=== PATIENT | female | born 1970 | race Caucasian/White ===

== ENCOUNTER → 2016-12-19 | Outpatient (CLI) | payer OTHER ==
--- NOTE | 2016-12-20 01:47 | REP ---
Clinical: Posterior knee pain with recent trauma. Technique: AP, lateral, bilateral oblique and sunrise views of the right knee. Findings: Age-related changes are appreciated. No acute fracture or dislocation. No obvious effusion. No subcutaneous emphysema or radiodense foreign body. Impression: Age-related degenerative changes. No acute fracture or dislocation. Signed by Tony Marshall MD 12/20/2016 01:39 A
== END ==
LOC: M CLY 15:03
PROVIDERS: ATTEND Nurse Practitioner
DX: M17.11 Unilateral primary osteoarthritis, right knee (principal); M25.561 Pain in right knee

== ENCOUNTER → 2017-07-10 | Outpatient (REF) | payer OTHER | LOC: M LAB REF 07-09 10:00 | PROVIDERS: ATTEND Physician Assistant | DX: N39.0 Urinary tract infection, site not specified (principal) ==

== ENCOUNTER → 2019-02-26 | Outpatient (CLI) | payer OTHER ==
--- NOTE | 2019-02-26 16:37 | REP ---
Clinical: Right knee pain. Technique: AP, lateral, bilateral oblique and sunrise views of the right knee. Findings: Increased sclerosis to the tibial plateau is appreciated with very subtle medial joint space narrowing. [place] view suggests increase sclerosis along the posterior patellar margin with minimal lateral joint space narrowing. No acute fracture dislocation. No effusion. No fracture. No obvious chondrocalcinosis. Impression: Mild arthritic degenerative changes. Electronically Signed by Tony Marshall MD 02/26/2019 04:28 P
== END ==
LOC: M WUC 16:07
PROVIDERS: ATTEND Physician Assistant
DX: M17.11 Unilateral primary osteoarthritis, right knee (principal)

== ENCOUNTER → 2019-07-25 | Outpatient (CLI) | payer OTHER ==
--- NOTE | 2019-07-25 10:53 | REP ---
HISTORY: Knee pain. COMPARISON: None. The anterior and posterior horns of the lateral meniscus are within normal limits. The anterior and posterior horns of the medial meniscus are within normal limits. The anterior and posterior cruciate ligaments are intact. The quadriceps and patellar tendons are intact. The medial and lateral collateral ligaments are intact. The medial and lateral patellar retinacula are intact. There is blistering involving the patellar articular cartilage. The medial and lateral compartmental articular cartilages are slightly thinned. There is no joint effusion. The marrow signal is within normal limits. Seen herniating between the tendon of the medial head of the gastrocnemius muscle and the semimembranosus tendon, there is a septated structure of T1 and T2 prolongation, which measures approximately 5 x 0.9 x 1.5 cm. IMPRESSION: 1. Chondromalacia as described above. 2. Slightly complex Hall's cyst as described above. 3. Incidental healed benign fibrous cortical defect distal femoral diaphyseal cortex posterolaterally. Electronically Signed by You Heard DO 07/25/2019 12:22 P
== END ==
LOC: M RAD 08:35
PROVIDERS: ATTEND Orthopaedic Surgery Sports Medicine
DX: M25.561 Pain in right knee (principal)

== ENCOUNTER → 2019-11-05 | Outpatient (REF) | payer OTHER ==
[2019-11-05 16:55] LABS: APPEARANCE, URINE CLEAR (CLEAR); BACTERIA, URINE AUTO 1+ (NEGATIVE); BILIRUBIN, URINE AUTO NEGATIVE (NEGATIVE); BLOOD, URINE BLOOD NEGATIVE (NEGATIVE); COLOR, URINE YELLOW (YELLOW); GLUCOSE, URINE (UA) AUTO NEGATIVE (NEGATIVE); KETONE, URINE AUTO TRACE mg/dL (NEGATIVE); LEUKOCYTE ESTERASE, URINE AUTO NEGATIVE (NEGATIVE); NITRITE, URINE AUTO NEGATIVE (NEGATIVE); PROTEIN, URINE AUTO NEGATIVE (NEGATIVE); RBC, URINE AUTO 2 /HPF (0-3); SPECIFIC GRAVITY URINE AUTO 1.009 (1.002-1.035); SQUAMOUS EPITHELIAL CELL UR AU 0 /HPF (0-6); UROBILINOGEN, URINE AUTO 0.2 mg/dL (0.0-2.0); WBC, URINE AUTO 0 /HPF (0-3)
[2019-11-05 16:56] LABS: HEMATOCRIT 44.8 % (36.0-47.0); HEMOGLOBIN 15.1 g/dl (12.0-15.5); MEAN CORPUSCULAR HGB CONC 33.7 g/dl (32.0-36.5); MEAN CORPUSCULAR VOLUME 88.9 fl (80.0-96.0); PLATELET COUNT, AUTOMATED 228 10^3/uL (150-450); RED BLOOD COUNT 5.04 10^6/uL (4.00-5.40); WHITE BLOOD COUNT 5.9 10^3/uL (4.0-10.0)
[2019-11-05 17:11] LABS: ALBUMIN 4.4 GM/DL (3.2-5.2); ALT/SGPT 46 U/L (12-78); BILIRUBIN,TOTAL 0.6 MG/DL (0.2-1.0); BLOOD UREA NITROGEN 16 MG/DL (7-18); C REACTIVE PROTEIN QUANTITATIV < 0.30 MG/DL (0.00-0.30); CALCIUM LEVEL 9.2 MG/DL (8.5-10.1); CARBON DIOXIDE LEVEL 28 MEQ/L (21-32); CHLORIDE LEVEL 106 MEQ/L (98-107); CREATININE FOR GFR 0.66 MG/DL (0.55-1.30); GLOMERULAR FILTRATION RATE > 60.0 (>58); GLUCOSE, FASTING 90 MG/DL (70-100); SODIUM LEVEL 138 MEQ/L (136-145); TOTAL PROTEIN 7.5 GM/DL (6.4-8.2)
[2019-11-05 17:24] LABS: ERYTHROCYTE SEDIMENTATION RATE 2 mm/hr (0-20)
[2019-11-10 10:07] LABS: ANA (HEP2) Negative (.); ANTI DS-DNA AB Negative (Negative)
== END ==
LOC: M SFHCCLAY 10:58
PROVIDERS: ATTEND Family Medicine
DX: M32.9 Systemic lupus erythematosus, unspecified (principal); R53.83 Other fatigue

== ENCOUNTER → 2020-10-11 | Outpatient (CLI) | payer OTHER ==
--- NOTE | 2020-10-12 04:05 | REP ---
INDICATION: HX OF COVID C/O CHEST HEAVINESS COMPARISON: None. TECHNIQUE: PA and lateral. FINDINGS: The mediastinum and cardiac silhouette are normal. The lung rico are clear and without acute consolidation, effusion, or pneumothorax. The skeletal structures are intact and normal. IMPRESSION: No acute cardiopulmonary process. <Electronically signed by Tony Marshall > 10/12/20 [id number]
== END ==
LOC: M CLY 12:24
PROVIDERS: ATTEND Family Medicine
DX: J32.1 Chronic frontal sinusitis (principal); R07.89 Other chest pain

== ENCOUNTER 2020-10-27 09:08 | Emergency (ER) | payer OTHER ==
[~2020-10-27] VITALS: Ht 162.6 cm; Wt 64.1 kg
[2020-10-27] MEDS ORDERED: ASPI81TA26 (09:18)
[2020-10-27] MEDS ORDERED: NS 500 ML IV ONE (09:50)
--- OUTSIDE RECORDS SUMMARY | 2020-10-27 09:58 | CCD ---
Author Author [facility] [facility] Organization 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 Active confirmed 67697766640191738 Problem Frontal sinusitis, unspecified chronicity J32.1 Active confirmed 81106417 Problem Allergic rhinitis J30.9 Active confirmed 61 025276 Problem Impacted cerumen of left ear H61.22 Active confirme d 67637756 Problem Anxiety F41.9 Active confirmed 68904787 Problem Systemic lupus M32.9 Active confirmed 34292 009 ALLERGIES Allergen (clinical drug ingredient) Drug/Non Drug Allergy do cumented on EMR Reaction Allergy Type Onset Date Status sulfa Rash Non Drug Allergy Active ENCOUNTERS from 1971 to 2020-10-11 Encounter Location Date Provider Diagnosis [facility] [address] [place] [address] Oct, Mathew Paulson SLE (systemic lupus erythematosus related syndrome) M32.9 and Frontal sinusitis, unspecified chronicity J32.1 IMMUNIZATIONS Vaccine Route Administration Date Status Influenza (6mo & up) Fluzone Unknown December 19, 2016 Ref used SOCIAL HISTORY Tobacco Use: Social History Observation Description Date Details (start date - stop date) Never Smoker Sex Assigned At : Social History Observation Description Sex Assigned At Unknown Audit Question Answer Notes Total Score: 1 Interpretation: Alcohol Education Catholic: Question Answer Notes Catholic pentecostalism has no impa ct on healthcare Sexual Hx: Question Answer Notes Had sex in the last 12 months (vaginal, oral, or anal)? Yes Have you ever had an STD? No with Men only Use protection? No Drug and Alcohol Question Answer Notes Total Score: 0 Interpretation: No problems reported Alcohol Screening: Question Answer Notes Did you have a drink containing alcohol in the past year? Ye s Points 1 Interpretation Negative How often did you have six or more drinks on one occas ion in the past year? Never (0 points) How many drinks did you have on a typica l day when you were drinking in the past year? 1 or 2 (0 points) How often did you have a drink containing alcohol in t he past year? Monthly or less (1 point) BMI Care Goal Follow-Up Question Answer Notes Above Normal BMI Follow-Up Dietary management educatio n, guidance, and counseling Tobacco Use: Question Answer Notes Are you a: never smoker never smoker/updated 10/11/2020 Additional Findings: Tobacco User none Additional Findings: Tobacco Non-User no REASON FOR REFERRAL No Information VITAL SIGNS No information MEDICATIONS Medication SIG (Take, Route, Frequency, Duration) Notes Start Da te End Date Status Nakita 180 MG 1 tablet as needed Orally Once a day Active PredniSONE 20 MG 2 tablet Orally Daily for 5 day(s) 2020 Active PredniSONE 10 MG 2 tablet daily then taper as directed Orally Once a day for 30 day(s) Oct, Active Gabapentin 300 MG 1 capsule Orally qhs Active Mirena 20 MCG/24HR Intrauterine Act britney Aspirin 81 81 MG 1 tablet Orally Once a day for 30 day(s) Oct, Active PROCEDURES from 1971 to 2020-10-11 Procedure Date Ordered Result Body Site ELECTROCARDIOGRAM, COMPLETE EKG 2020-10-11 N/A RESULTS No Results REASON FOR VISIT call back MEDICAL (GENERAL) HISTORY Type Description Date Medical History Lupus Medical History Frontal sinusitis, unspecified chronicit y Medical History Sinusitis, unspecified chronicity, unspe cified location Surgical History right knee surgery 1992 Surgical History endometriosis Surgical History D&C Hospitalization History surgery Goals Section No Information Health Concerns No Information MEDICAL EQUIPMENT No Information MENTAL STATUS No Information FUNCTIONAL STATUS No Information ASSESSMENTS Encounter Date Diagnosis Assessment Notes Treatment Notes Treatm ent Clinical Notes Oct, SLE (systemic lupus erythema tosus related syndrome) (ICD-10 - M32.9) Oct, Frontal sinusitis, unspecified chronicity (ICD-1 0 - J32.1) PLAN OF TREATMENT Future Test Test Name Order Date TAWNY CHEST 2 VIEW [id number] Next Appt Details Provider Name:Mathew Paulson, 2020-11-02 03 :30:00 PM, [address] , [place], [address], Insurance Providers Payer Name Payer Address Payer Phone Insured Name Patient Relati onship to Insured Coverage Start Date Coverage End Date [facility] [address] [facility] [id number] RAIES LAMB self
--- OUTSIDE RECORDS SUMMARY | 2020-10-27 09:58 | CCD ---
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 Active 96927541441210935 Problem Fibromyalgia M79.7 Active 57310923 Problem Allergic rhinitis J30.9 Active 68548345 Problem Impacted cerumen of left ear H61.22 Active 180 27423 Problem Anxiety F41.9 Active 62191536 ALLERGIES Allergen (clinical drug ingredient) Drug/Non Drug Allergy do cumented on EMR Reaction Allergy Type Onset Date Status sulfa Rash Non Drug Allergy Active ENCOUNTERS from 1971 to 2020-09-16 Encounter Location Date Provider Diagnosis [facility] [address] [place] [address] Sep, Mathew Paulosn IMMUNIZATIONS Vaccine Route Administration Date Status Influenza (6mo & up) Fluzone Unknown December 19, 2016 Ref used SOCIAL HISTORY Tobacco Use: Social History Observation Description Date Details (start date - stop date) Never Smoker Sex Assigned At : Social History Observation Description Sex Assigned At Unknown Audit Question Answer Notes Total Score: 1 Interpretation: Alcohol Education Baptist: Question Answer Notes Baptist religious has no impa ct on healthcare Sexual [...] Are you a: never smoker never smoker/updated 11/05/2019 Additional Findings: Tobacco User none Additional Findings: Tobacco Non-User no REASON FOR REFERRAL No Information VITAL SIGNS No information MEDICATIONS Medication SIG (Take, Route, Frequency, Duration) Notes Start Da te End Date Status Mirena 20 MCG/24HR Intrauterine Act britney Ankita 180 MG 1 tablet as needed Orally Once a day Active Ibuprofen 800 mg 1 tablet Orally Three times a day,prn pain Sep, Active Gabapentin 300 MG 1 capsule Orally qhs for 30 Days Active PROCEDURES No Information RESULTS No Results REASON FOR VISIT FYI MEDICAL (GENERAL) HISTORY Type Description Date Medical History Lupus Medical History Frontal sinusitis, unspecified chronicit y Medical History Sinusitis, unspecified chronicity, unspe cified location Surgical History right knee surgery 1992 Surgical History endometriosis Surgical History D&C Hospitalization History surgery Goals Section No Information Health Concerns No Information MEDICAL EQUIPMENT No Information MENTAL STATUS No Information FUNCTIONAL STATUS No Information ASSESSMENTS No Information PLAN OF TREATMENT Medication Medication Name Sig Start Date Stop Date Mirena 20 MCG/24HR Intrauterine Ibuprofen 800 mg 1 tablet Orally Three times a day,prn pain 2014 Gabapentin 300 MG 1 capsule Orally qhs for 30 Days Ankita 180 MG 1 tablet as needed Orally Once a day Next Appt Details Provider Name:Mathew Paulson, 2020-09-28 03 :30:00 PM, [address] [place], [address], Insurance Providers Payer Name Payer Address Payer Phone Insured Name Patient Relati onship to Insured Coverage Start Date Coverage End Date [facility] [address] [facility] [phone] ARIES LAMB self
--- OUTSIDE RECORDS SUMMARY | 2020-10-27 09:58 | CCD ---
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 Active 34060238830375509 Problem Fibromyalgia M79.7 Active 73813831 Problem Allergic rhinitis J30.9 Active 11028888 Problem Impacted cerumen of left ear H61.22 Active 180 69597 Problem Anxiety F41.9 Active 31387832 ALLERGIES Allergen (clinical drug ingredient) Drug/Non Drug Allergy do cumented on EMR Reaction Allergy Type Onset Date Status sulfa Rash Non Drug Allergy Active ENCOUNTERS from 1971 to 2020-08-12 Encounter Location Date Provider Diagnosis [facility] [address] [place] [address] Aug, Mathew Paulson Fibromyalgia M79.7 IMMUNIZATIONS Vaccine Route Administration Date Status Influenza (6mo & up) Fluzone Unknown December 19, 2016 Ref used SOCIAL HISTORY Tobacco Use: Social History Observation Description Date Details (start date - stop date) Never Smoker Sex Assigned At : Social History Observation Description Sex Assigned At Unknown Audit Question Answer Notes Total Score: 1 Interpretation: Alcohol Education Tenriism: Question Answer Notes Tenriism yarsanism has no impa ct on healthcare Sexual [...] Information RESULTS No Results REASON FOR VISIT refill MEDICAL (GENERAL) HISTORY Type Description Date Medical [...] Notes Treatment Notes Treatm ent Clinical Notes Aug, Fibromyalgia (ICD-10 - M79.7) PLAN OF TREATMENT Medication Medication Name Sig Start Date Stop Date Mirena 20 MCG/24HR Intrauterine Ibuprofen 800 mg 1 tablet Orally Three times a day,prn pain 2014 Gabapentin 300 MG 1 capsule Orally qhs for 30 Days Ankita 180 MG 1 tablet as needed Orally Once a day Insurance Providers Payer Name Payer Address Payer Phone Insured Name Patient Relati onship to Insured Coverage Start Date Coverage End Date [facility] [address] [facility] [address] ARIES LAMB self
--- OUTSIDE RECORDS SUMMARY | 2020-10-27 09:58 | CCD | Continuity of Care Document ---
Author Author [facility] Organization Unknown Address [address] [place] [address] [place] [address] Phone [phone] Care Team Providers Care Front Desk Agent Name Role Phone Mathew Paulson MD AUTM [phone] [employer] AUTM [phone] Problems Description No Information Available Social History Type Date Description Comments Sex Unknown ETOH Use Rarely consumes alcohol Tobacco Use Start: Unknown Patient has never smoked Smoking Status Reviewed: 02/26/19 Patient has never smoked Allergies, Adverse Reactions, Alerts Active Allergies Reaction Severity Comments Date Cipro 07/09/2017 Medications Active Medications SIG Qnty Indications Ordering Provide r Date Advil 200mg Capsules 2 @3am Danis Medellin JR., M.D. 09/13/2020 Vitamin-B Complex Tablets Unknown Womens Daily Formula Tablets Unknown Mirena (52 MG) 20mcg/24HR IUD Unknown History Medications Albuterol Sulfate HFA 108(90Base) mcg/Act Aerosol 2 puffs inhaled every 4-6 hours as needed for sob/wheeze 8.500gm J06.9 Danis Medellin JR., M.D. 07/26/2020 - 08/03/2020 Immunizations Description No Information Available Vital Signs Date Vital Result Comment 09/13/2020 10:22am BP Systolic 124 mmHg BP Diastolic 80 mmHg Heart Rate 78 /min Respiratory Rate 16 /min O2 % BldC Oximetry 99 % Body Temperature 98.7 F Weight 134.00 lb Height 64 inches 5'4" BMI (Body Mass Index) 23.0 kg/m2 Pain Level 1 07/26/2020 9:53am BP Systolic 120 mmHg BP Diastolic 84 mmHg Heart Rate 76 /min Respiratory Rate 16 /min O2 % BldC Oximetry 99 % Body Temperature 98.7 F Weight 129.00 lb Height 64 inches 5'4" BMI (Body Mass Index) 22.1 kg/m2 Pain Level 2 Results Description No Information Available Procedures Description No Information Available Medical Devices Description No Information Available Encounters Type Date Location Provider Dx Diagnosis Office Visit 09/13/2020 9:30a [facility] Dada Morley, P .A. R05 Cough U07.1 Covid-19 Office Visit 07/26/2020 9:15a [facility] Dada Morley, P .A. J06.9 Acute upper respiratory infection, unspecified R05 Cough Z20.828 Contact w and exposure to ot h viral communicable diseases Assessments Date Code Description Provider 09/13/2020 R05 Cough Dada gilliam, P.A. 09/13/2020 U07.1 Covid-19 Dada gilliam, P.A. 07/26/2020 J06.9 Acute upper respiratory infectio n, unspecified Dada Morley, P.A. 07/26/2020 R05 Cough Dada gilliam, P.A. 07/26/2020 Z20.828 Contact with and (nunes spected) exposure to other viral communicable diseases Dada Morley, P.A. Plan of Treatment No Information Available Functional Status Description No Information Available Mental Status Description No Information Available Referrals Description No Information Available
--- OUTSIDE RECORDS SUMMARY | 2020-10-27 09:58 | CCD ---
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 Active confirmed 30323010796101251 Problem Frontal sinusitis, unspecified chronicity J32.1 Active confirmed 66766775 Problem Allergic rhinitis J30.9 Active confirmed 61 673895 Problem Impacted cerumen of left ear H61.22 Active confirme d 37925482 Problem Anxiety F41.9 Active confirmed 38562636 Problem Systemic lupus M32.9 Active confirmed 01451 009 ALLERGIES Allergen (clinical drug ingredient) Drug/Non Drug Allergy do cumented on EMR Reaction Allergy Type Onset Date Status sulfa Rash Non Drug Allergy Active ENCOUNTERS from 1971 to 2020-10-13 Encounter Location Date Provider Diagnosis [facility] [address] [place] [address] 11 Oct, 2020 Mathew Paulson Fibromyalgia M79.7 IMMUNIZATIONS Vaccine Route Administration Date Status Influenza (6mo & up) Fluzone Unknown December 19, 2016 Ref used SOCIAL HISTORY Tobacco Use: Social History Observation Description Date Details (start date - stop date) Never Smoker Sex Assigned At : Social History Observation Description Sex Assigned At Unknown Audit Question Answer Notes Total Score: 1 Interpretation: Alcohol Education Voodoo: Question Answer Notes Voodoo yarsanism has no impa ct on healthcare [...] Notes Start Da te End Date Status Ankita 180 MG 1 tablet as needed Orally Once a day Active PredniSONE 20 MG 2 tablet Orally Daily for 5 day(s) 2020 Active PredniSONE 10 MG 2 tablet daily then taper as directed Orally Once a day for 30 day(s) Oct, Active Gabapentin 300 MG 1 capsule Orally qhs for 90 days Active Mirena 20 MCG/24HR Intrauterine Act britney Aspirin 81 81 MG 1 tablet Orally Once a day for 30 day(s) Oct, Active PROCEDURES No Information RESULTS No Results REASON FOR VISIT Refill - Gabapentin MEDICAL (GENERAL) HISTORY Type Description Date Medical [...] Treatment Notes Treatm ent Clinical Notes Oct, Fibromyalgia (ICD-10 - M79.7) PLAN OF TREATMENT Medication Medication Name Sig Start Date Stop Date Gabapentin 300 MG 1 capsule Orally qhs for 90 days Next Appt Details Provider Name:Mathew Paulson, 2020-11-02 03 :30:00 PM, [address] [place], [place], [address], Insurance Providers Payer Name Payer Address Payer Phone Insured Name Patient Relati onship to Insured Coverage Start Date Coverage End Date [facility] [address] [facility] [phone] [phone] ARIES LAMB self
--- OUTSIDE RECORDS SUMMARY | 2020-10-27 09:58 | CCD | Continuity of Care Document ---
Author Author Gamaliel MORLEY Organization Unknown Address [address] [place] [address] [place] [address] Phone [phone] Care Team Providers Care Supervisor Photoengraving Name Role Phone Mathew Paulson MD AUTM [phone] [employer] AUTM [phone] Problems Description No Information Available Social History [...]
--- OUTSIDE RECORDS SUMMARY | 2020-10-27 09:58 | CCD ---
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 Active confirmed 68174974172661351 Problem Frontal sinusitis, unspecified chronicity J32.1 Active confirmed 16141604 Problem Allergic rhinitis J30.9 Active confirmed 61 175924 Problem Impacted cerumen of left ear H61.22 Active confirme d 20242593 Problem Anxiety F41.9 Active confirmed 76976166 Problem Systemic lupus M32.9 Active confirmed 07778 009 ALLERGIES Allergen (clinical drug ingredient) Drug/Non Drug Allergy do cumented on EMR Reaction Allergy Type Onset Date Status sulfa Rash Non Drug Allergy Active ENCOUNTERS from 1971 to 2020-10-12 Encounter Location Date Provider Diagnosis [facility] [address] [place] [address] Oct, Mathew Paulson COVID-19 U07.1 ; SLE (systemic lupus erythematosus related syndrome) M32.9 and Fibromyalgia M79.7 IMMUNIZATIONS Vaccine Route Administration Date Status Influenza (6mo & up) Fluzone Unknown December 19, 2016 Ref used SOCIAL HISTORY Tobacco Use: Social History Observation Description Date Details (start date - stop date) Never Smoker Sex Assigned At : Social History Observation Description Sex Assigned At Unknown Audit Question Answer Notes Total Score: 1 Interpretation: Alcohol Education Restoration: Question Answer Notes Restoration denominational has no impa ct on healthcare Sexual [...] REASON FOR REFERRAL No Information VITAL SIGNS Weight 132 lbs Oct, Height 63" in Oct, BMI 23.38 kg/m2 Oct, Heart Rate 66 /min Oct, Respiratory Rate 17 /min Oct, Temperature 97.3 degrees Fahrenheit Oct, Oximetry 99RA Oct, Blood pressure systolic 128 mm Hg Oct, Blood pressure diastolic 88 mm Hg Oct, MEDICATIONS Medication SIG (Take, Route, Frequency, Duration) [...] Information RESULTS No Results REASON FOR VISIT R/S from no show appt 07/15/20 MEDICAL (GENERAL) HISTORY Type Description Date Medical [...] Treatment Notes Treatm ent Clinical Notes Oct, COVID-19 (ICD-10 - U07.1) 2 tablets daily for 4 days then 1 tablet daily for 4 days, then 1/2 tablet daily for 4 days, then 1/2 tablet every other day until gone. if symptoms aren't improved by 4 days then call. To reduce thromboembolism risk, continue aspirin until the october. Use prilosec 20mg until you are off the prednisone. Oct, SLE (systemic lupus erythema tosus related syndrome) (ICD-10 - M32.9) Oct, Fibromyalgia (ICD-10 - M79.7) PLAN OF TREATMENT Treatment Notes Assessment Notes Clinical Notes COVID-19 2 tablets daily for 4 days t hen 1 tablet daily for 4 days, then 1/2 tablet daily for 4 days, then 1/2 tablet every other day until gone. if symptoms aren't improved by 4 days then call. To reduce thromboembolism risk, continue aspirin until the october. Use prilosec 20mg until you are off the prednisone. Next Appt Details 4 Weeks Reason: Provider Name:Mathew Larsonh, 2020-11-02 03 :30:00 PM, [address] [place] [address], [address], Insurance Providers Payer Name Payer Address Payer Phone Insured Name Patient Relati onship to Insured Coverage Start Date [place]age [place] [address] [facility] [phone] ARIES LAMB self
--- OUTSIDE RECORDS SUMMARY | 2020-10-27 09:58 | CCD ---
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 Active confirmed 74159584818915646 Problem Fibromyalgia M79.7 Active confirmed 6570036 7 Problem Allergic rhinitis J30.9 Active confirmed 61 250647 Problem Impacted cerumen of left ear H61.22 Active confirme d 07591511 Problem Anxiety F41.9 Active confirmed 92985099 ALLERGIES Allergen (clinical drug ingredient) Drug/Non Drug Allergy do cumented on EMR Reaction Allergy Type Onset Date Status sulfa Rash Non Drug Allergy Active ENCOUNTERS from 1971 to 2020-10-07 Encounter Location Date Provider Diagnosis [facility] [address] [place] [address] Oct, Mathew Paulson IMMUNIZATIONS Vaccine Route Administration Date Status Influenza (6mo & up) Fluzone Unknown December 19, 2016 Ref used SOCIAL HISTORY Tobacco Use: Social History Observation Description Date Details (start date - stop date) Never Smoker Sex Assigned At : Social History Observation Description Sex Assigned At Unknown Audit Question Answer Notes Total Score: 1 Interpretation: Alcohol Education Evangelical: Question Answer Notes Evangelical bahai has no impa ct on healthcare Sexual [...] Are you a: never smoker never smoker/updated 10/05/2020 Additional Findings: Tobacco User none Additional Findings: Tobacco Non-User no REASON FOR REFERRAL No Information VITAL SIGNS No information MEDICATIONS Medication SIG (Take, Route, Frequency, Duration) Notes Start Da te End Date Status Ankita 180 MG 1 tablet as needed Orally Once a day Active PredniSONE 10 MG 2 tablet daily then taper as directed Orally Once a day for 30 day(s) Oct, Active Aspirin 81 81 MG 1 tablet Orally Once a day for 30 day(s) Oct, Active Mirena 20 MCG/24HR Intrauterine Act britney Gabapentin 300 MG 1 capsule Orally qhs Active PROCEDURES No Information RESULTS No Results REASON FOR VISIT script MEDICAL (GENERAL) HISTORY Type Description Date Medical [...] Medication Name Sig Start Date Stop Date Ankita 180 MG 1 tablet as needed Orally Once a day Mirena 20 MCG/24HR Intrauterine Gabapentin 300 MG 1 capsule Orally qhs Aspirin 81 81 MG 1 tablet Orally Once a day for 30 day(s) Oct PredniSONE 10 MG 2 tablet daily then taper as directed Orally Once a day for 30 day(s) Oct, Next Appt Details Provider Name:Mathew Paulson, 2020-11-02 03 :30:00 PM, [address], [place], [address], Insurance Providers Payer Name Payer Address Payer Phone Insured Name Patient Relati onship to Insured Coverage Start Date Coverage End Date [facility] [id number] [facility] [id number] ARIES LAMB self
--- OUTSIDE RECORDS SUMMARY | 2020-10-27 09:58 | CCD ---
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 confirmed 78939265071751193 Problem Frontal sinusitis, unspecified chronicity J32.1 Active confirmed 71222688 Problem Allergic rhinitis J30.9 Active confirmed 61 553185 Problem Impacted cerumen of left ear H61.22 Active confirme d 64736876 Problem Anxiety F41.9 Active confirmed 11812725 Problem Systemic lupus M32.9 Active confirmed 68892 009 ALLERGIES Allergen (clinical drug ingredient) Drug/Non Drug Allergy do cumented on EMR Reaction Allergy Type Onset Date Status sulfa Rash Non Drug Allergy Active ENCOUNTERS from 1971 to 2020-10-15 Encounter Location Date Provider Diagnosis [facility] [address] [place] [address] Oct, Mathew Paulson COVID-19 U07.1 and Atypical chest pain R07.89 IMMUNIZATIONS Vaccine Route Administration Date Status Influenza (6mo & up) Fluzone Unknown December 19, 2016 Ref used SOCIAL HISTORY Tobacco Use: Social History Observation Description Date Details (start date - stop date) Never Smoker Sex Assigned At : Social History Observation Description Sex Assigned At Unknown Audit Question Answer Notes Total Score: 1 Interpretation: Alcohol Education Confucianism: Question Answer Notes Confucianism orthodox has no impa ct on healthcare Sexual [...] FOR REFERRAL No Information VITAL SIGNS Weight 136.8 lbs Oct, Height 63" in Oct, BMI 24.23 kg/m2 Oct, Heart Rate 86 /min Oct, Respiratory Rate 18 /min Oct, Temperature 97.8 degrees Fahrenheit Oct, Oximetry 98RA Oct, Blood pressure systolic 124 mm Hg Oct, Blood pressure diastolic 80 mm Hg Oct, MEDICATIONS Medication SIG (Take, [...] day(s) Oct, Active PROCEDURES from 1971 to 2020-10-15 Procedure Date Ordered Result Body Site ELECTROCARDIOGRAM, COMPLETE EKG 2020-10-11 N/A RESULTS No Results REASON FOR VISIT chest xray,per needs EKG MEDICAL (GENERAL) HISTORY Type Description Date Medical [...] Clinical Notes Oct, COVID-19 (ICD-10 - U07.1) Patient was refused 2nd dose of Covid-19 because she still had symptoms. Give a number to call for when she is ready. Oct, Atypical chest pain (ICD-10 - R07.89) PLAN OF TREATMENT Medication Medication Name Sig Start Date Stop Date Gabapentin 300 MG 1 capsule Orally qhs for 90 days Treatment Notes Assessment Notes Clinical Notes COVID-19 Patient was refused 2nd dose of Covid-19 because she still had symptoms. Give a number to call for when she is ready. Next Appt Details prn Reason: Provider Name:Mathew Paulson, 2020-11-02 03 :30:00 PM, [address] [place] [address], [phone], Insurance Providers Payer Name Payer Address Payer Phone Insured Name Patient Relati onship to Insured Coverage Start Date Coverage End Date [facility] [address] [facility] [id number] ARIES LAMB self
--- OUTSIDE RECORDS SUMMARY | 2020-10-27 09:58 | CCD ---
Author Author [facility] Organization 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 [address] [place] [address] 16 Oct, 2020 Mathew Paulson IMMUNIZATIONS Vaccine Route Administration Date Status Influenza 6mo & up Fluzone Unknown December 19, 2016 Refus ed SOCIAL HISTORY Tobacco Use: Social History Observation Description Date Details (start date - stop date) Never Smoker Sex Assigned At : Social History Observation Description Sex Assigned At Unknown Audit Question Answer Notes Interpretation: Alcohol Education Total Score: 1 Taoism: Question Answer Notes Taoism pentecostalism has no impa ct on healthcare Sexual Hx: Question Answer Notes Had sex in the last 12 months (vaginal, oral, or anal)? Yes Have you ever had an STD? No with Men only Use protection? No Drug and Alcohol Question Answer Notes Interpretation: No problems reported Total Score: 0 Alcohol Screening: Question Answer Notes Did you [...] Status Mirena 20 MCG/24HR Intrauterine Act britney PredniSONE 10 MG 2 tabs dailyx3 days then 1 t ab daily x3 days then 1/2 tab daily x4 days Orally Once a day for 10 day(s) Oct, Active Aspirin 81 81 MG 1 tablet Orally Once a day for 30 day(s) Oct, Active Gabapentin 300 MG 1 capsule Orally qhs for 90 days Active PredniSONE 20 MG 2 tablet Orally Daily for 5 day(s) 2020 Active Potassium Chloride Kristie ER 10 MEQ 1 tablet with food O rally Daily for 15 day(s) Oct, Active Furosemide 20 MG 1 tablet Orally Once a day for 15 day(s) Oct, Active Ankita 180 MG 1 tablet as needed Orally Once a day Active PredniSONE 10 MG 2 tablet daily then taper as directed Orally Once a day for 30 day(s) Oct, Active PROCEDURES No Information RESULTS No Results REASON FOR VISIT prednisone taper, labs MEDICAL (GENERAL) HISTORY Type Description Date Medical [...] Medication Name Sig Start Date Stop Date Potassium Chloride Kristie ER 10 MEQ 1 tablet with food O rally Daily for 15 day(s) Oct, Furosemide 20 MG 1 tablet Orally Once a day for 15 day(s) Oct PredniSONE 10 MG 2 tabs dailyx3 days then 1 t ab daily x3 days then 1/2 tab daily x4 days Orally Once a day for 10 day(s) Oct, Gabapentin 300 MG 1 capsule Orally qhs for 90 days Next Appt Details Provider Name:Mathew Larsonh, 2020-11-02 03 :30:00 PM, [place], [address], Insurance Providers Payer Name Payer Address Payer Phone Insured Name Patient Relati onship to Insured Coverage Start Date Coverage End Date [facility] [address] [facility] [phone] ARIES LAMB self
--- OUTSIDE RECORDS SUMMARY | 2020-10-27 09:59 | CCD ---
Author Author [facility] Organization [facility] Address Unknown Phone Unavailable Care Team Providers Care Security Installation Technician Name Role Phone SLADE MORLEY Unavailable Unavailable SLADE MORLEY Unavailable Unavailable SLADE MORLEY Unavailable Unavailable SLADE MORLEY Unavailable Unavailable SLADE MORLEY Unavailable Unavailable SLADE MORLEY Unavailable Unavailable SLADE MORLEY Unavailable Unavailable SLADE MORLEY Unavailable Unavailable SLADE MORLEY Unavailable Unavailable SLADE MORLEY Unavailable Unavailable SLADE MORLEY Unavailable Unavailable SLADE MORLEY Unavailable Unavailable SLADE MORLEY Unavailable Unavailable SLADE MORLEY Unavailable Unavailable MILLI, SLADE PA Unavailable Unavailable MILLI, SLADE PA Unavailable Unavailable MILLI, SLADE PA Unavailable Unavailable MILLI, SLADE PA Unavailable Unavailable MILLI, SLADE PA Unavailable Unavailable MILLI, SLADE PA Unavailable Unavailable MILLI, SLADE PA Unavailable Unavailable MILLI, SLADE PA Unavailable Unavailable MILLI, SLADE PA Unavailable Unavailable MILLI, SLADE PA Unavailable Unavailable MILLI, SLADE PA Unavailable Unavailable MILLI, SLADE PA Unavailable Unavailable MILLI, SLADE PA Unavailable Unavailable MILLI, SLADE PA Unavailable Unavailable MILLI, SLADE PA Unavailable Unavailable MILLI, SLADE PA Unavailable Unavailable MILLI, SLADE PA Unavailable Unavailable MILLI, SLADE PA Unavailable Unavailable MILLI, SLADE PA Unavailable Unavailable MILLI, SLADE PA Unavailable Unavailable MILLI, SLADE PA Unavailable Unavailable MILLI, SLADE PA Unavailable Unavailable MILLI, SLADE PA Unavailable Unavailable MILLI, SLADE PA Unavailable Unavailable MILLI, SLADE PA Unavailable Unavailable Lyndsay CHOU MD Unavailable Unavailable Lyndsay CHOU MD Unavailable Unavailable Lyndsay CHOU MD Unavailable Unavailable Lyndsay CHOU MD Unavailable Unavailable Lyndsay CHOU MD Unavailable Unavailable Lyndsay CHOU MD Unavailable Unavailable Lyndsay CHOU MD Unavailable Unavailable Lyndsay CHOU MD Unavailable Unavailable Lyndsay CHOU MD Unavailable Unavailable Lyndsay CHOU MD Unavailable Unavailable Lyndsay CHOU MD Unavailable Unavailable Lyndsay CHOU MD Unavailable Unavailable Lyndsay CHOU MD Unavailable Unavailable Lyndsay CHOU MD Unavailable Unavailable Lyndsay CHOU MD Unavailable Unavailable Lyndsay CHOU MD Unavailable Unavailable Lyndsay CHOU MD Unavailable Unavailable Lyndsay CHOU MD Unavailable Unavailable Lyndsay CHOU MD Unavailable Unavailable Lyndsay CHOU MD Unavailable Unavailable Lyndsay CHOU MD Unavailable Unavailable Lyndsay CHOU MD Unavailable Unavailable Lyndsay CHOU MD Unavailable Unavailable Lyndsay CHOU MD Unavailable Unavailable Lyndsay CHOU MD Unavailable Unavailable Lyndsay CHOU MD Unavailable Unavailable Lyndsay CHOU MD Unavailable Unavailable Lyndsay CHOU MD Unavailable Unavailable Lyndsay CHOU MD Unavailable Unavailable Lyndsay CHOU MD Unavailable Unavailable Lyndsay CHOU MD Unavailable Unavailable Lyndsay CHOU MD Unavailable Unavailable Lyndsay CHOU MD Unavailable Unavailable Lyndsay CHOU MD Unavailable Unavailable Lyndsay CHOU MD Unavailable Unavailable Lyndsay CHOU MD Unavailable Unavailable Lyndsay CHOU MD Unavailable Unavailable Lyndsay CHOU MD Unavailable Unavailable Lyndsay CHOU MD Unavailable Unavailable Lyndsay CHOU MD Unavailable Unavailable Lyndsay CHOU MD Unavailable Unavailable Lyndsay CHOU MD Unavailable Unavailable Lyndsay CHOU MD Unavailable Unavailable Lyndsay CHOU MD Unavailable Unavailable Lyndsay CHOU MD Unavailable Unavailable Lyndsay CHOU MD Unavailable Unavailable Lyndsay CHOU MD Unavailable Unavailable Lyndsay CHOU MD Unavailable Unavailable Lyndsay CHOU MD Unavailable Unavailable Lyndsay CHOU MD Unavailable Unavailable Lyndsay CHOU MD Unavailable Unavailable Lyndsay CHOU MD Unavailable Unavailable Lyndsay CHOU MD Unavailable Unavailable Lyndsay CHOU MD Unavailable Unavailable Lyndsay CHOU MD Unavailable Unavailable Lyndsay CHOU MD Unavailable Unavailable Lyndsay CHOU MD Unavailable Unavailable Lyndsay CHOU MD Unavailable Unavailable Lyndsay CHOU MD Unavailable Unavailable Lyndsay CHOU MD Unavailable Unavailable Lyndsay CHOU MD Unavailable Unavailable Lyndsay CHOU MD Unavailable Unavailable Lyndsay CHOU MD Unavailable Unavailable Lyndsay CHOU MD Unavailable Unavailable Lyndsay CHOU MD Unavailable Unavailable Lyndsay CHOU MD Unavailable Unavailable Lyndsay CHOU MD Unavailable Unavailable Lyndsay CHOU MD Unavailable Unavailable Lyndsay CHOU MD Unavailable Unavailable Lyndsay CHOU MD Unavailable Unavailable JARED, 0000{ Unavailable Unavailable Re-disclosure Warning The records that you are about to access may contain information from federally-assisted alcohol or drug abuse programs. If such information is present, then the following federally mandated warning applies: This information has been disclosed to you from records protected by federal confidentiality rules (42 CFR part 2). The federal rules prohibit you from making any further disclosure of this information unless further disclosure is expressly permitted by the written consent of the person to whom it pertains or as otherwise permitted by 42 CFR part 2. A general authorization for the release of medical or other information is NOT sufficient for this purpose. The Federal rules restrict any use of the information to criminally investigate or prosecute any alcohol or drug abuse patient.The records that you are about to access may contain highly sensitive health information, the redisclosure of which is protected by Article 27-F of the [facility] Public Health law. If you continue you may have access to information: Regarding HIV / AIDS; Provided by facilities licensed or operated by the [facility] Office of Mental Health; or Provided by the [facility] Office for People With Developmental Disabilities. If such information is present, then the following [facility] mandated warning applies: This information has been disclosed to you from confidential records which are protected by state law. State law prohibits you from making any further disclosure of this information without the specific written consent of the person to whom it pertains, or as otherwise permitted by law. Any unauthorized further disclosure in violation of state law may result in a fine or alf sentence or both. A general authorization for the release of medical or other information is NOT sufficient authorization for further disc losure. Allergies and Adverse Reactions Type Description Substance Reaction Status Data Source(s ) sulfa sulfa sulfa Rash Active eCW1 ([facility]) sulfa sulfa sulfa Rash Active eCW1 ([facility]) Family History Family Member Name Family Member Gender Family Member Status Date o f Status Description Data Source(s) Unknown Unknown Problem MEDENT ([facility]) Unknown Male Problem MEDENT ([facility]) Encounters Encounter Providers Location Date Indications Data Source(s ) [place] [address] [facility] [address] 10/18/2020 12:00:00 AM EST eCW1 ([facility]) Unknown [address] [facility] [address] 10/13/2020 12:00:00 AM EST eCW1 ([facility]) [place]patient [address] [facility] [address] 10/11/2020 12:00:00 AM EST eCW1 ([facility]) Unknown [address] [facility] [address] 10/11/2020 12:00:00 AM EST eCW1 ([facility]) Unknown [address] [facility] [address] 10/06/2020 12:00:00 AM EST eCW1 ([facility]) Outpatient [address] [facility] [place] [address] 10/05/2020 12:00:00 AM EST eCW1 ([facility]) Unknown [address] [facility] [place] [address] 09/16/2020 12:00:00 AM EST eCW1 ([facility]) Outpatient Attender: SLADE Anguiano ry 09/13/2020 08:30:00 AM EST MEDENT ([facility]) Unknown [address] [facility] [place] [address] 08/11/2020 12:00:00 AM EST eCW1 ([facility]) Outpatient Attender: SLADE Anguiano ry 07/26/2020 08:15:00 AM EST MEDENT ([facility]) Unknown [address] [facility] [place] [address] 07/15/2020 12:00:00 AM EST eCW1 ([facility]) [facility] [address] [facility] [place] [address] 07/15/2020 12:00:00 AM EST eCW1 ([facility]) [facility] [address] [facility] [place] [address] 01/05/2020 12:00:00 AM EDT eCW1 ([facility]) [facility] [address] [facility] [address] 11/05/2019 12:00:00 AM EST eCW1 ([facility]) Outpatient Attender: 0000{ JARED 09/24/2019 02:06:00 PM E [facility] Outpatient Attender: NEGRA CHOU MD 09/24/2019 02:06:00 PM EST ANNUAL BREAST EXAM [facility] ANNUAL BREAST EXAM Negra Chou MD: [address] [address], Ph. Attender: NEGRA CHOU MD [place] [facility] - Main Office 09/10/2019 12:00:00 AM EST SANDRA ([facility]) Medications Medication Brand Name Start Date Product Form Dose Route Admi nistrative Instructions Pharmacy Instructions Status Indications Reaction Description Data Source(s) Furosemide 20 MG Oral Tablet Furosemide 20 MG 10/18/2020 12:00:00 A M EST 1.0 {tablet} active Furosemide 20 MG eCW1 ( [facility]) 10 mg 10/18/2020 12:00:00 AM EST tablet 11 TAKE 2 TABLETS BY MOUTH ONCE DAILY FOR 3 DAYS, 1 TABLET ONCE DAILY FOR 3 DAYS, THEN ONE-HALF TABLET ONCE DAILY FOR FOR 4 DAYS TAKE 2 TABLETS BY MOUTH ONCE DAILY FOR 3 DAYS, 1 TABLET ONCE DAILY FOR 3 DAYS, THEN ONE-HALF TABLET ONCE DAILY FOR FOR 4 DAYS SOLD: 10/20/2020 [facility] 20 mg 10/18/2020 12:00:00 AM EST tablet 15 TAKE ONE TABLET BY MOUTH EVERY DAY TAKE ONE TABLET BY MOUTH EVERY DAY SOLD: 10/20/2020 [facility] 10 mEq 10/18/2020 12:00:00 AM EST tablet,ER particles/cry stals 15 TAKE ONE TABLET BY MOUTH EVERY DAY WITH FOOD TAKE ONE TABLET BY MOUTH EVERY DAY WITH FOOD SOLD: 10/20/2020 [facility] Potassium Chloride Kristie ER 10 MEQ Potassium Chloride Kristie ER 10 MEQ 10/18/2020 12:00:00 AM EST 1.0 {tablet_with_food} active Potassium Chloride Kristie ER 10 MEQ eCW1 ([facility]) Prednisone 10 MG Oral Tablet PredniSONE 10 MG PredniSONE 10 MG 10/18/2020 12:00:00 AM EST active PredniSO NE 10 MG eCW1 ([facility]) 300 mg 10/14/2020 12:00:00 AM EST capsule 90 TAKE ONE CAPSULE BY MOUTH EVERY DAY AT BEDTIME TAKE ONE CAPSULE BY MOUTH EVERY DAY AT BEDTIME SOLD: [facility] 20 mg 10/11/2020 12:00:00 AM EST tablet 10 TAKE TWO TABLETS BY MOUTH EVERY DAY FOR 5 DAYS TAKE TWO TABLETS BY MOUTH EVERY DAY FOR 5 DAYS SOLD: [facility] Prednisone 20 MG Oral Tablet PredniSONE 20 MG PredniSONE 20 MG 10/11/2020 12:00:00 AM EST 2.0 {tablet} active Pr edniSONE 20 MG eCW1 ([facility]) Prednisone 20 MG Oral Tablet PredniSONE 20 MG PredniSONE 20 MG 10/11/2020 12:00:00 AM EST 2.0 {tablet} active Pr edniSONE 20 MG eCW1 ([facility]) Prednisone 20 MG Oral Tablet PredniSONE 20 MG PredniSONE 20 MG 10/11/2020 12:00:00 AM EST 2.0 {tablet} active Pr edniSONE 20 MG eCW1 ([facility]) Prednisone 20 MG Oral Tablet PredniSONE 20 MG PredniSONE 20 MG 10/11/2020 12:00:00 AM EST 2.0 {tablet} active Pr edniSONE 20 MG eCW1 ([facility]) Prednisone 20 MG Oral Tablet PredniSONE 20 MG PredniSONE 20 MG 10/11/2020 12:00:00 AM EST 2.0 {tablet} active Pr edniSONE 20 MG eCW1 ([facility]) 10 mg 10/06/2020 12:00:00 AM EST tablet 18 TAKE TWO TABLETS BY MOUTH EVERY DAY THEN TAPER DIRECTED TAKE TWO TABLETS BY MOUTH EVERY DAY THEN TAPER DIRECTED SOLD: 10/06/2020 [facility] 81 mg 10/06/2020 12:00:00 AM EST tablet,delayed release (DR/EC) 30 TAKE ONE TABLET BY MOUTH EVERY DAY TAKE ONE TABLET BY MOUTH EVERY DAY SOLD: 10/06/2020 [facility] Aspirin 81 MG Delayed Release Oral Tablet Aspirin 81 81 MG A spirin 81 81 MG 10/05/2020 12:00:00 AM EST 1.0 {tablet} active Aspirin 81 81 MG eCW1 ([facility]) Aspirin 81 MG Delayed Release Oral Tablet Aspirin 81 81 MG A spirin 81 81 MG 10/05/2020 12:00:00 AM EST 1.0 {tablet} active Aspirin 81 81 MG eCW1 ([facility]) Prednisone 10 MG Oral Tablet PredniSONE 10 MG PredniSONE 10 MG 10/05/2020 12:00:00 AM EST active PredniSO NE 10 MG eCW1 ([facility]) Prednisone 10 MG Oral Tablet PredniSONE 10 MG PredniSONE 10 MG 10/05/2020 12:00:00 AM EST active PredniSO NE 10 MG eCW1 ([facility]) Aspirin 81 MG Delayed Release Oral Tablet Aspirin 81 81 MG A spirin 81 81 MG 10/05/2020 12:00:00 AM EST 1.0 {tablet} active Aspirin 81 81 MG eCW1 ([facility]) Prednisone 10 MG Oral Tablet PredniSONE 10 MG PredniSONE 10 MG 10/05/2020 12:00:00 AM EST active PredniSO NE 10 MG eCW1 ([facility]) Prednisone 10 MG Oral Tablet PredniSONE 10 MG PredniSONE 10 MG 10/05/2020 12:00:00 AM EST active PredniSO NE 10 MG eCW1 ([facility]) Aspirin 81 MG Delayed Release Oral Tablet Aspirin 81 81 MG A spirin 81 81 MG 10/05/2020 12:00:00 AM EST 1.0 {tablet} active Aspirin 81 81 MG eCW1 ([facility]) Prednisone 10 MG Oral Tablet PredniSONE 10 MG PredniSONE 10 MG 10/05/2020 12:00:00 AM EST active PredniSO NE 10 MG eCW1 ([facility]) Aspirin 81 MG Delayed Release Oral Tablet Aspirin 81 81 MG A spirin 81 81 MG 10/05/2020 12:00:00 AM EST 1.0 {tablet} active Aspirin 81 81 MG eCW1 ([facility]) Prednisone 10 MG Oral Tablet PredniSONE 10 MG PredniSONE 10 MG 10/05/2020 12:00:00 AM EST active PredniSO NE 10 MG eCW1 ([facility]) Aspirin 81 MG Delayed Release Oral Tablet Aspirin 81 81 MG A spirin 81 81 MG 10/05/2020 12:00:00 AM EST 1.0 {tablet} active Aspirin 81 81 MG eCW1 ([facility]) Ibuprofen 200 MG Oral Capsule [Advil] Advil 09/13/2020 12:00:00 AM EST active MEDENT ([facility]) 300 mg 08/12/2020 12:00:00 AM EST capsule 30 TAKE ONE CAPSULE BY MOUTH AT BEDTIME TAKE ONE CAPSULE BY MOUTH AT BEDTIME SOLD: 08/12/2020 [facility] 300 mg 08/12/2020 12:00:00 AM EST capsule 30 TAKE ONE CAPSULE BY MOUTH AT BEDTIME TAKE ONE CAPSULE BY MOUTH AT BEDTIME SOLD: 09/14/2020 [facility] 60 ACTUAT Albuterol 0.09 MG/ACTUAT Metered Dose Inhaler Albu terol Sulfate HFA 07/26/2020 12:00:00 AM EST RESPIRATORY completed MEDENT ([facility]) 90 mcg/actuation 07/26/2020 12:00:00 AM EST HFA aerosol inha ler 8 INHALE TWO PUFFS BY MOUTH EVERY 4 TO 6 HOURS NEEDED FOR SHORTNESS OF BREATH / WHEEZING INHALE TWO PUFFS BY MOUTH EVERY 4 TO 6 HOURS NEEDED FOR SHORTNESS OF BREATH / WHEEZING SOLD: 07/26/2020 [facility] 300 mg 01/05/2020 12:00:00 AM EDT capsule 30 TAKE ONE CAPSULE BY MOUTH AT BEDTIME TAKE ONE CAPSULE BY MOUTH AT BEDTIME SOLD: 01/06/2020 [facility] gabapentin 300 MG Oral Capsule gabapentin 300 mg capsu le gabapentin 300 mg capsule completed gabapentin 300 MG Oral Capsule SANDRA ([facility]) Insurance Providers Payer name Policy type / Coverage type Policy ID Covered green party ID Covered green party's relationship to schulz Policy Schulz Plan Information [facility] [id number] SP [id number] [facility] [id number] S [id number] [facility] [place] [facility] [id number] S [id number] [facility] [id number] SP [id number] [employer] [id number] Self [id number] ANSI-Commercial [id number] ANSI-Commercial [id number] ANSI-Commercial [id number] ANSI-Commercial [id number] ANSI-Commercial [id number] ANSI-Commercial [id number] ANSI-Commercial [id number] ANSI-Commercial [id number] ANSI-Commercial [id number] ANSI-Commercial [id number] ANSI-Commercial [id number] ANSI-Commercial [id number] ANSI-Commercial [id number] ANSI-Commercial [id number] [employer] [id number] SP [id number] [employer] [id number] Self [id number] [employer] (pr) Commercial [id number] Self [id number] Ghi/Emblem HLTH (pr) Medigap Part B [id number] Family Depende [id number] [employer] (pr) Commercial [id number] Self [id number] [employer] HEA [id number] [employer] HEA [id number] [employer] PPO O [id number] S [id number] [employer] [place] PPO 302/307 [id number] SP [id number] [place] [place] PPO 302/307 [id number] SP [id number] [employer] [place] PPO 302/307 [id number] HU2 [id number] [employer] [place] PPO 302/307 [id number] EXCELLUS BCBS P [id number] S [id number] EXCELLUS BCBS P [id number] S VYS BC/BS OF [place] P [id number] S [id number] BLUE CROSS O [id number] S [id number] EXCELLUS C [id number] Self [id number] BLUE [place]OSS O [id number] SP [id number] BCBS [place]AT[place] PPO 302/307 [id number] Problems, Conditions, and Diagnoses Code Display Name Description Problem Type Effective Dates Data Source(s) J32.1 [id number] Frontal sinusitis, unspecified chronicity Problem 10/11/2020 12:00:00 AM EST eCW1 ([facility]) M22.41 [id number] Chondromalacia of right patella Prob kim 11/05/2019 12:00:00 AM EST eCW1 ([facility]) M22.41 [id number] Chondromalacia of right patella Prob kim 11/05/2019 12:00:00 AM EST eCW1 ([facility]) Surgeries/Procedures Procedure Description Date Indications Data Source(s) ECG ROUTINE ECG W/LEAST 12 LDS W/I&R 10/11/2020 12:00: 00 AM EST eCW1 ([facility]) TeleMedicine Est. Pt. Level 3 01/05/2020 12:00:00 AM E DT eCW1 ([facility]) Results ID Date Data Source [id number] 09/13/2020 12:00:00 AM EST [facility] Name Value Range Interpretation Code Description Data Heide rce(s) Supporting Document(s) SARS-CoV2 Rapid Antigen [facility] This lab was ordered by [facility] and reported by [facility]. ID Date Data Source LISY TITER & PATTERN 11/05/2019 12:00:00 AM EST eCW1 ([facility]) Name Value Range Interpretation Code Description Data Heide rce(s) Supporting Document(s) Negative . LISY (HEP2) eCW1 ([facility]) ID Date Data Source FREE T4 & TSH PANEL 11/05/2019 12:00:00 AM EST eCW1 ([facility]) Name Value Range Interpretation Code Description Data Heide rce(s) Supporting Document(s) 1.840 0.358-3.740 THYROID STIMULATING HORM ONE eCW1 ([facility]) 1.10 0.76-1.46 FREE T4 eCW1 ([facility]) ID Date Data Source ERYTHROCYTE SEDIMENTATION RATE 11/05/2019 12:00:00 AM EST eC W1 ([facility]) Name Value Range Interpretation Code Description Data Heide rce(s) Supporting Document(s) 2 0-20 ERYTHROCYTE SEDIMENTATION RATE eCW1 ([facility]) ID Date Data Source C REACTIVE PROTEIN QUANTITATIV (At [facility]) 11/05/2019 12:00 :00 AM EST eCW1 ([facility]) Name Value Range Interpretation Code Description Data Heide rce(s) Supporting Document(s) < 0.30 0.00-0.30 C REACTIVE PROTEIN QUANTI TATIV eCW1 ([facility]) ID Date Data Source Comprehensive Metabolic Profile (CMP) 11/05/2019 12:00:00 AM EST eCW1 ([facility]) Name Value Range Interpretation Code Description Data Heide rce(s) Supporting Document(s) 16 7-18 BLOOD UREA NITROGEN eCW1 ([facility]) 90 70-100 GLUCOSE, FASTING eCW1 ([facility]) 4.0 3.5-5.1 POTASSIUM SERUM eCW1 ([facility]) > 60.0 >58 GLOMERULAR FILTRATION RATE eCW 1 ([facility]) 138 136-145 SODIUM LEVEL eCW1 ([facility]) 0.66 0.55-1.30 CREATININE FOR GFR eCW1 ([facility]) 106 98-107 CHLORIDE LEVEL eCW1 ([facility]) 9.2 8.5-10.1 CALCIUM LEVEL eCW1 ([facility]) 28 21-32 CARBON DIOXIDE LEVEL eCW1 ([facility]) 39 45-117 ALKALINE PHOSPHATASE eCW1 ([facility]) 0.6 0.2-1.0 BILIRUBIN,TOTAL eCW1 ([facility]) 46 12-78 ALT/SGPT eCW1 ([facility]) 24 7-37 AST/SGOT eCW1 ([facility]) 1.42 1.00-1.93 ALBUMIN/GLOBULIN RATIO eCW1 ([facility]) 7.5 6.4-8.2 TOTAL PROTEIN eCW1 ([facility]) 4.4 3.2-5.2 ALBUMIN eCW1 ([facility]) ID Date Data Source CBC - Complete Blood Count 11/05/2019 12:00:00 AM EST eCW1 ( [facility]) Name Value Range Interpretation Code Description Data Heide rce(s) Supporting Document(s) 5.9 4.0-10.0 WHITE BLOOD COUNT eCW1 ([facility]) 5.04 4.00-5.40 RED BLOOD COUNT eCW1 ([facility]) 44.8 36.0-47.0 HEMATOCRIT eCW1 ([facility]) 88.9 80.0-96.0 MEAN CORPUSCULAR VOLUME e CW1 ([facility]) 15.1 12.0-15.5 HEMOGLOBIN eCW1 ([facility]) 12.5 11.5-14.5 RED CELL DISTRIBUTION WID TH eCW1 ([facility]) 33.7 32.0-36.5 MEAN CORPUSCULAR HGB CONC eCW1 ([facility]) 30.0 27.0-33.0 MEAN CORPUSCULAR HEMOGLOB IN eCW1 ([facility]) 228 150-450 PLATELET COUNT, AUTOMATED eCW1 ([facility]) ID Date Data Source [id number] 09/24/2019 02:58:00 PM EST Jared Rose al DATE OF EXAM: 09/24/2019BILATERAL SCREEN ING TOMOSYNTHESIS 3D DIGITAL MAMMOGRAM WITH CAD COMPARISON: 11/28/2016 LAST CLINICAL BREAST EXAM: October 2018 [facility] Breast Cancer Risk Evaluation (Tyrer-Cuzick Model v.8)This patient - Lifetime risk (to age 85): 9.5% Lifetime population risk (to age 85): 11.8% Probability BRCA 1: 0.03%Probability BRCA 2: 0.09% TECHNIQUE: Bilateral craniocaudal and medial lateral oblique 3D digital mammograms were performed using tomosynthesis. Computer-aided detection was also utilized. FINDINGS: The breast tissue is heterogeneously dense which may obscure small masses. No primary or secondary signs of malignancy detected. IMPRESSION: Normal mammogram. Recommend routine yearly mammography. BILATERAL BREAST ULTRASOUND, COMPLETE INDICATION: Dense breast parenchymal pattern on mammography COMPARISON: Right breast 02/12/2014. TECHNIQUE: High resolution real-time ultrasound scanning of both breasts was performed through the entire breast, retroareolar and axillary regions. FINDINGS: No masses are identified, solid or cystic. Both axilla are normal. IMPRESSION: Normal bilateral breast ultrasound. BI-RADS 1 - NEGATIVE Professional interpretation performed at Dr. Rivera Niel[facility] .End of diagnostic report for accession: [id number] Interpreted: Shayne Aviles MDTranscribed: 09/24/2019 02:41 PMSigned: 09/24/2019 02:58 PM Shayne Aviles MD [facility] # [id number] BILL # [id number] [place] Name Value Range Interpretation Code Description Data Heide rce(s) Supporting Document(s) ID Date Data Source [id number] 09/24/2019 02:58:00 PM [facility] DATE OF EXAM: 09/24/2019BILATERAL SCREEN ING TOMOSYNTHESIS 3D DIGITAL MAMMOGRAM WITH CAD COMPARISON: 11/28/2016 LAST CLINICAL BREAST EXAM: October 2018 [facility] Breast Cancer Risk Evaluation (Tyrer-Cuzick Model v.8)This patient - Lifetime risk (to age 85): 9.5% Lifetime population risk (to age 85): 11.8% Probability BRCA 1: 0.03%Probability BRCA 2: 0.09% TECHNIQUE: Bilateral craniocaudal and medial lateral oblique 3D digital mammograms were performed using tomosynthesis. Computer-aided detection was also utilized. FINDINGS: The breast tissue is heterogeneously dense which may obscure small masses. No primary or secondary signs of malignancy detected. IMPRESSION: Normal mammogram. Recommend routine yearly mammography. BILATERAL BREAST ULTRASOUND, COMPLETE INDICATION: Dense breast parenchymal pattern on mammography COMPARISON: Right breast 02/12/2014. TECHNIQUE: High resolution real-time ultrasound scanning of both breasts was performed through the entire breast, retroareolar and axillary regions. FINDINGS: No masses are identified, solid or cystic. Both axilla are normal. IMPRESSION: Normal bilateral breast ultrasound. BI-RADS 1 - NEGATIVE Professional interpretation performed at Dr. Rivera Niel[facility] at [facility] .End of diagnostic report for accession: [id number] Interpreted: Shayne Aviles MDTranscribed: 09/24/2019 02:41 PMSigned: 09/24/2019 02:58 PM Shayne Aviles MD [facility] ACC # [id number] BILL # [id number] [facility] Name Value Range Interpretation Code Description Data Heide rce(s) Supporting Document(s) ID Date Data Source [id number] 09/14/2019 10:05:00 AM EST [facility] Name Value Range Interpretation Code Description Data Heide rce(s) Supporting Document(s) IGP, Apt HPV,rfx 16/18,45 [facility] TESTS RESULT FLAG UNI TS REF RANGE LAB Clinician Provided Cytology Information Source.............Cervix;Endocervix No. of containers..01 ThinPrep VialDIAGNOSIS: 01 NEGATIVE FOR INTRAEPITHELIAL LESION OR MALIGNANCY.Specimen adequacy: 01 Satisfactory for evaluation. Endocervical and/or squamous metaplastic cells (endocervical component) are present.Clinician ICD10: 01 Z87.42Performed by: 01 Claudette Clancy, Arterial Embalmer ([facility]). 01Note: Note 01 The Pap smear is a screening test designed to aid in the detection of premalignant and malignant conditions of the uterine cervix. It is not a diagnostic procedure and should not be used as the sole means of detecting cervical cancer. Both false-positive and false-negative reports do occur. Test Methodology: Note 01 This liquid based Thin Prep(R) pap test was screened with the use of an image guided system.HPV Aptima Negative (Negative) 02 This nucleic acid amplification test detects fourteen high-risk HPV types (16,18,31,33,35,39,45,51,52,56,58,59,66,68) without differentiation. FLAG LEGEND: L-Low Normal,H-High Normal,LL-Alert Low,HH-Alert High <-Panic Low,>-Panic High,A-Abnormal,AA-Critical Abnormal Performed at:01 [facility] [address] [place] [phone] Prasad Vela MD, 02 [facility] [address] [place] [phone] Prasad Vela MD, Procedure Social History Code Duration Value Status Description Data Source(s ) Smoking 10/11/2020 12:00:00 AM EST Never Smoker completed Never S moker eCW1 ([facility]) Smoking 10/11/2020 12:00:00 AM EST Never Smoker completed Never S moker eCW1 ([facility]) Smoking 10/11/2020 12:00:00 AM EST Never Smoker completed Never S moker eCW1 ([facility]) Smoking 10/11/2020 12:00:00 AM EST Never Smoker completed Never S moker eCW1 ([facility]) Smoking 10/11/2020 12:00:00 AM EST Never Smoker completed Never S moker eCW1 ([facility]) Smoking 10/05/2020 12:00:00 AM EST Never Smoker completed Never S moker eCW1 ([facility]) Smoking 01/05/2020 12:00:00 AM EDT Never Smoker completed Never S moker eCW1 ([facility]) Smoking 01/05/2020 12:00:00 AM EDT Never Smoker completed Never S moker eCW1 ([facility]) Smoking 01/05/2020 12:00:00 AM EDT Never Smoker completed Never S moker eCW1 ([facility]) Vital Signs ID Date Data Source UNK Name Value Range Interpretation Code Description Data Source(s) Diastolic blood pressure 80 mm[Hg] 80 mm[Hg] eCW1 ([facility]) Systolic blood pressure 124 mm[Hg] 124 mm[Hg] e CW1 ([facility]) Body temperature 97.8 [degF] 97.8 [degF] eCW1 ( [facility]) Respiratory rate 18 /min 18 /min eCW1 ([facility]) Heart rate 86 /min 86 /min eCW1 ([facility]) Body mass index (BMI) [Ratio] 24.23 kg/m2 24.23 kg/m2 W1 ([facility]) Body height [in_i] eCW1 ([facility]) Body weight 136.8 [lb_av] 136.8 [lb_av] eCW1 ([facility]) Diastolic blood pressure 88 mm[Hg] 88 mm[Hg] eCW1 ([facility]) Systolic blood pressure 128 mm[Hg] 128 mm[Hg] e CW1 ([facility]) Body temperature 97.3 [degF] 97.3 [degF] eCW1 ( [facility]) Respiratory rate 17 /min 17 /min eCW1 ([facility]) Heart rate 66 /min 66 /min eCW1 ([facility]) Body mass index (BMI) [Ratio] 23.38 kg/m2 23.38 kg/m2 eCW1 ([facility]) Body height [in_i] eCW1 ([facility]) Body weight 132 [lb_av] 132 [lb_av] eCW1 ([facility]) Body mass index (BMI) [Ratio] 23.0 kg/m2 23.0 k g/m2 MEDENT ([facility]) Body height 64 [in_i] 64 [in_i] MEDENT ([facility]) 5'4" Body weight 134.00 [lb_av] 134.00 [lb_av] MEDEN T ([facility], [facility]) Body temperature 98.7 [degF] 98.7 [degF] MEDENT ([facility], [facility]) Oxygen saturation in Arterial blood by Pulse oximetry 99 % 99 % MEDENT ([facility], [facility]) Respiratory rate 16 /min 16 /min MEDENT ( [facility]) Heart rate 78 /min 78 /min MEDENT ([facility], [facility]) Diastolic blood pressure 80 mm[Hg] 80 mm[Hg] MEDENT ([facility], [facility]) Systolic blood pressure 124 mm[Hg] 124 mm[Hg] M EDENT ([facility], [facility]) Body mass index (BMI) [Ratio] 22.1 kg/m2 22.1 k g/m2 MEDENT ([facility], [facility]) Body height 64 [in_i] 64 [in_i] MEDENT ([facility]) 5'4" Body weight 129.00 [lb_av] 129.00 [lb_av] MEDEN T ([facility], [facility]) Body temperature 98.7 [degF] 98.7 [degF] MEDENT ([facility], [facility]) Oxygen saturation in Arterial blood by Pulse oximetry 99 % 99 % MEDENT ([facility], [facility]) Respiratory rate 16 /min 16 /min MEDENT ( [facility]) Heart rate 76 /min 76 /min MEDENT ([facility], [facility]) Diastolic blood pressure 84 mm[Hg] 84 mm[Hg] MEDENT ([facility], [facility]) Systolic blood pressure 120 mm[Hg] 120 mm[Hg] M EDENT ([facility], [facility]) Diastolic blood pressure 80 mm[Hg] 80 mm[Hg] eCW1 ([facility]) Systolic blood pressure 126 mm[Hg] 126 mm[Hg] e CW1 ([facility]) Body temperature 98.7 [degF] 98.7 [degF] eCW1 ( [facility]) Respiratory rate 18 /min 18 /min eCW1 ([facility]) Heart rate 74 /min 74 /min eCW1 ([facility]) Body mass index (BMI) [Ratio] 23.03 kg/m2 23.03 kg/m2 eCW1 ([facility]) Body height [in_us] eCW1 ([facility]) Body weight Measured 130 [lb_av] 130 [lb_av] eC W1 ([facility]) Body weight 132 [lb_av] 132 [lb_av] SANDRA ([facility]) Systolic blood pressure 116 mm[Hg] 116 mm[Hg] A THENA ([facility]) Body mass index (BMI) [Ratio] 23 kg/m2 23 kg/ m2 SANDRA ([facility]) Body height 63.5 [in_i] 63.5 [in_i] SANDRA ([facility]) Diastolic blood pressure 84 mm[Hg] 84 mm[Hg] SANDRA ([facility]) Patient Treatment Plan of Care Planned Activity Planned Date Details Description Data Source (s) Furosemide 20 MG Oral Tablet 10/18/2020 12:00:00 AM EST eCW1 ([facility]) Potassium Chloride Kristie ER 10 MEQ 10/18/2020 12:00:00 AM EST eCW1 ([facility]) Prednisone 10 MG Oral Tablet 10/18/2020 12:00:00 AM EST eCW1 ([facility]) Aspirin 81 MG Delayed Release Oral Tablet 10/05/2020 12:00:00 AM ES T eCW1 ([facility]) Prednisone 10 MG Oral Tablet 10/05/2020 12:00:00 AM EST eCW1 ([facility]) gabapentin 300 MG Oral Capsule SANDRA ([facility])
[2020-10-27 10:22] LABS: BASO # 0.1 10^3/uL (0.0-0.2); BASO % 0.6 % (0.0-1.0); EOS % 0.4 % (0.0-3.0); HEMATOCRIT 44.4 % (36.0-47.0); LYMPH # 1.4 10^3/uL (1.5-5.0); LYMPH % 17.8 % (24.0-44.0); MEAN CORPUSCULAR HEMOGLOBIN 30.1 pg (27.0-33.0); MEAN CORPUSCULAR HGB CONC 33.8 g/dl (32.0-36.5); MEAN CORPUSCULAR VOLUME 89.2 fl (80.0-96.0); MONO # 0.4 10^3/uL (0.0-0.8); MONO % 4.8 % (2.0-8.0); NEUTROPHILS # 6.1 10^3/uL (1.5-8.5); NEUTROPHILS % 76.1 % (36.0-66.0); PLATELET COUNT, AUTOMATED 212 10^3/uL (150-450); RED BLOOD COUNT 4.98 10^6/uL (4.00-5.40)
[2020-10-27 10:32] LABS: INR 0.94; PROTHROMBIN TIME 12.8 SECONDS (12.5-14.3)
[2020-10-27 10:33] LABS: PARTIAL THROMBOPLASTIN TIME 25.5 SECONDS (24.2-38.5)
[2020-10-27 10:35] LABS: D-DIMER QUANT 284.06 ng/ml (<500)
[2020-10-27 10:44] LABS: ERYTHROCYTE SEDIMENTATION RATE 2 mm/hr (0-20)
[2020-10-27] MEDS ORDERED: ISOVUE-370 76% 100ML VIAL As Ordered ONE (10:45)
[2020-10-27 10:57] LABS: CK-MB VALUE MASS < 1.0 NG/ML (<3.6); CPK CREATINE PHOSPHOKINASE 39 U/L (26-192); FERRITIN 170 NG/ML (8-252); LDH LACTATE DEHYDROGENASE 151 U/L (84-246); MB/CK RELATIVE INDEX 2.56 (< OR =4); TROPONIN I < 0.02 NG/ML (< 0.10)
--- NOTE | 2020-10-27 11:11 | REP ---
INDICATION: sob, palpitation post covid r/o pe. COMPARISON: 10/11/2020 chest x-ray. TECHNIQUE: CT angiogram chest performed following the intravenous administration of 75 cc of Isovue 370. Sagittal and coronal reconstruction images are performed. FINDINGS: Lungs: Minor dependent atelectatic changes posterior lower lung zones. No pleural effusion, acute infiltrate, parenchymal nodule or mass. There is no pleural thickening, calcified pleural plaque or apical scarring. No pneumothorax. Mediastinum: No adenopathy. Pulmonary arteries: No evidence of pulmonary embolism. Marie: No adenopathy. Axilla: No adenopathy. Pleura: No effusion. Heart: Not enlarged. Thoracic aorta: No aneurysm or dissection. Upper abdominal structures: There are sub cm sized low-density nodules consistent with cysts in the right hepatic lobe. No hepatosplenomegaly or biliary dilatation. Gallbladder portions seen without calcified stone or mass visualized pancreas intact adrenal glands normal upper poles kidneys and spleen unremarkable. There is no hiatal hernia. Visualized osseous structures: There is a bone island in the T6 vertebral body has a benign finding. Sternum, manubrium, medial clavicles, scapulae, visualized portions of humeral heads and ribs were unremarkable. IMPRESSION: No CT evidence of pulmonary emboli. The aorta is without aneurysm or dissection. No acute infiltrate, pleural effusion, pulmonary nodule or other acute lung finding. A few small subcentimeter cysts in the right lobe of the liver. No other significant finding in the abdomen. Nothing acute. <Electronically signed by Abdi Hurtado > 10/27/20 [id number]
[2020-10-27 11:52] VITALS: BP 110/74
--- NOTE | 2020-10-27 19:40 | ECGEPIP ---
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 Order Number: [id number] Reading MD: Zeynep Curtis Measurements Intervals [place] Rate: 81 P: 60 MN: 118 QRS: 75 QRSD: 92 T: 43 QT: 370 QTc: 429 Interpretive Statements Normal sinus rhythm Incomplete right bundle branch block No prior Electronically Signed on 10-27-2020 19:40:44 EST by Zeynep Curtis
== END 2020-10-27 12:05 | disposition home or self-care (01) ==
LOC: M ED 09:08
DX: R06.00 Dyspnea, unspecified (principal); R53.83 Other fatigue; K76.89 Other specified diseases of liver; Z86.16 Personal history of COVID-19; Z79.82 Long term (current) use of aspirin; Z88.1 Allergy status to other antibiotic agents; Z88.2 Allergy status to sulfonamides
CPT/HCPCS: 71275; 80047; 82550; 82553; 82728; 83615; 83735; 84484; 84702; 85025; 85379; 85610; 85652; 85730; 86140; 93005; 96360; 96361; 99284; Q9967

== ENCOUNTER → 2020-11-06 | Outpatient (CLI) | payer OTHER ==
[~2020-11-06] MED LIST: ASPI81TA26
[2020-11-06 09:10] LABS: BASO % 0.9 % (0.0-1.0); EOS # 0.1 10^3/uL (0.0-0.5); EOS % 1.4 % (0.0-3.0); HEMATOCRIT 43.5 % (36.0-47.0); HEMOGLOBIN 14.3 g/dl (12.0-15.5); LYMPH # 1.5 10^3/uL (1.5-5.0); LYMPH % 36.3 % (24.0-44.0); MEAN CORPUSCULAR HEMOGLOBIN 29.7 pg (27.0-33.0); MEAN CORPUSCULAR HGB CONC 32.9 g/dl (32.0-36.5); MEAN CORPUSCULAR VOLUME 90.4 fl (80.0-96.0); MONO # 0.3 10^3/uL (0.0-0.8); MONO % 6.6 % (2.0-8.0); NEUTROPHILS # 2.3 10^3/uL (1.5-8.5); NEUTROPHILS % 54.3 % (36.0-66.0); PLATELET COUNT, AUTOMATED 220 10^3/uL (150-450); RED BLOOD COUNT 4.81 10^6/uL (4.00-5.40); WHITE BLOOD COUNT 4.2 10^3/uL (4.0-10.0)
[2020-11-06 09:32] LABS: ALT/SGPT 56 U/L (12-78); BILIRUBIN,TOTAL 0.9 MG/DL (0.2-1.0); BLOOD UREA NITROGEN 11 MG/DL (7-18); CALCIUM LEVEL 8.7 MG/DL (8.5-10.1); CARBON DIOXIDE LEVEL 32 MEQ/L (21-32); CHLORIDE LEVEL 108 MEQ/L (98-107); CHOLESTEROL LEVEL 206 MG/DL (<200); CHOLESTEROL RISK RATIO 2.821 (<5); CREATININE FOR GFR 0.67 MG/DL (0.55-1.30); GLOMERULAR FILTRATION RATE > 60.0 (>58); GLUCOSE, FASTING 87 MG/DL (70-100); HDL CHOLESTEROL 73 MG/DL (>40); LDL CHOLESTEROL 118 MG/DL (<100); NON-HDL-C 133 MG/DL; POTASSIUM SERUM 3.9 MEQ/L (3.5-5.1); SODIUM LEVEL 142 MEQ/L (136-145); TOTAL PROTEIN 6.9 GM/DL (6.4-8.2); TRIGLYCERIDES LEVEL 73 MG/DL (<150)
== END ==
LOC: M LAB 08:17
PROVIDERS: ATTEND Family Medicine
DX: Z00.00 Encounter for general adult medical examination without abnormal findings (principal); U07.1 COVID-19; R07.89 Other chest pain; M79.7 Fibromyalgia; M32.9 Systemic lupus erythematosus, unspecified

== ENCOUNTER → 2022-01-22 | Outpatient (CLI) | payer OTHER ==
[2022-01-22 18:59] LABS: HEMATOCRIT 43.3 % (36.0-47.0); HEMOGLOBIN 14.8 g/dl (12.0-15.5); MEAN CORPUSCULAR HEMOGLOBIN 30.4 pg (27.0-33.0); MEAN CORPUSCULAR HGB CONC 34.2 g/dl (32.0-36.5); MEAN CORPUSCULAR VOLUME 88.9 fl (80.0-96.0); PLATELET COUNT, AUTOMATED 233 10^3/uL (150-450); RED BLOOD COUNT 4.87 10^6/uL (4.00-5.40); WHITE BLOOD COUNT 7.1 10^3/uL (4.0-10.0)
[2022-01-22 19:07] LABS: APPEARANCE, URINE CLEAR (CLEAR); BACTERIA, URINE AUTO NEGATIVE (NEGATIVE); BILIRUBIN, URINE AUTO NEGATIVE (NEGATIVE); BLOOD, URINE BLOOD NEGATIVE (NEGATIVE); COLOR, URINE STRAW (YELLOW); GLUCOSE, URINE (UA) AUTO NEGATIVE (NEGATIVE); KETONE, URINE AUTO NEGATIVE (NEGATIVE); LEUKOCYTE ESTERASE, URINE AUTO NEGATIVE (NEGATIVE); NITRITE, URINE AUTO NEGATIVE (NEGATIVE); PROTEIN, URINE AUTO NEGATIVE (NEGATIVE); RBC, URINE AUTO 0 /HPF (0-3); SPECIFIC GRAVITY URINE AUTO 1.004 (1.002-1.035); SQUAMOUS EPITHELIAL CELL UR AU 0 /HPF (0-6); UROBILINOGEN, URINE AUTO 0.2 mg/dL (0.0-2.0); WBC, URINE AUTO 0 /HPF (0-3)
[2022-01-22 19:26] LABS: ALBUMIN 4.3 GM/DL (3.2-5.2); ALT/SGPT 61 U/L (12-78); BILIRUBIN,TOTAL 0.8 MG/DL (0.2-1.0); BLOOD UREA NITROGEN 17 MG/DL (7-18); CALCIUM LEVEL 9.9 MG/DL (8.5-10.1); CARBON DIOXIDE LEVEL 28 MEQ/L (21-32); CHLORIDE LEVEL 108 MEQ/L (98-107); CHOLESTEROL LEVEL 210 MG/DL (<200); CHOLESTEROL RISK RATIO 2.763 (<5); GLOMERULAR FILTRATION RATE > 60.0 (>51); GLUCOSE, FASTING 80 MG/DL (70-100); HDL CHOLESTEROL 76 MG/DL (>40); LDL CHOLESTEROL 114 MG/DL (<100); NON-HDL-C 134 MG/DL; POTASSIUM SERUM 3.6 MEQ/L (3.5-5.1); SODIUM LEVEL 142 MEQ/L (136-145); TOTAL PROTEIN 7.8 GM/DL (6.4-8.2); TRIGLYCERIDES LEVEL 98 MG/DL (<150)
== END ==
LOC: M LAB 18:19
PROVIDERS: ATTEND Family Medicine
DX: M32.9 Systemic lupus erythematosus, unspecified (principal); E78.00 Pure hypercholesterolemia, unspecified

== ENCOUNTER → 2023-05-15 | Outpatient (CLI) | payer OTHER | LOC: M RAD 07:54 | PROVIDERS: ATTEND Physician Assistant | DX: M54.12 Radiculopathy, cervical region (principal) ==

== ENCOUNTER → 2023-05-15 | Outpatient (CLI) | payer OTHER ==
[2023-05-15 09:14] LABS: APPEARANCE, URINE CLEAR (CLEAR); BACTERIA, URINE AUTO NEGATIVE (NEGATIVE); BILIRUBIN, URINE AUTO NEGATIVE (NEGATIVE); BLOOD, URINE BLOOD 1+ (NEGATIVE); COLOR, URINE STRAW (YELLOW); GLUCOSE, URINE (UA) AUTO NEGATIVE (NEGATIVE); KETONE, URINE AUTO NEGATIVE (NEGATIVE); LEUKOCYTE ESTERASE, URINE AUTO TRACE (NEGATIVE); NITRITE, URINE AUTO NEGATIVE (NEGATIVE); PROTEIN, URINE AUTO NEGATIVE (NEGATIVE); RBC, URINE AUTO 0 /HPF (0-3); SPECIFIC GRAVITY URINE AUTO 1.008 (1.002-1.035); SQUAMOUS EPITHELIAL CELL UR AU 0 /HPF (0-6); UROBILINOGEN, URINE AUTO 0.2 mg/dL (0.0-2.0); WBC, URINE AUTO 3 /HPF (0-3)
[2023-05-15 09:17] LABS: BASO % 0.6 % (0.0-1.0); EOS # 0.1 10^3/uL (0.0-0.5); EOS % 1.7 % (0.0-3.0); HEMATOCRIT 45.7 % (36.0-47.0); HEMOGLOBIN 15.2 g/dl (12.0-15.5); LYMPH # 1.6 10^3/uL (1.5-5.0); LYMPH % 24.5 % (24.0-44.0); MEAN CORPUSCULAR HEMOGLOBIN 29.6 pg (27.0-33.0); MEAN CORPUSCULAR HGB CONC 33.3 g/dl (32.0-36.5); MEAN CORPUSCULAR VOLUME 88.9 fl (80.0-96.0); MONO # 0.4 10^3/uL (0.0-0.8); NEUTROPHILS # 4.2 10^3/uL (1.5-8.5); NEUTROPHILS % 66.7 % (36.0-66.0); PLATELET COUNT, AUTOMATED 239 10^3/uL (150-450); RED BLOOD COUNT 5.14 10^6/uL (4.00-5.40); WHITE BLOOD COUNT 6.3 10^3/uL (4.0-10.0)
[2023-05-15 09:30] LABS: ALBUMIN 3.9 G/DL (3.2-5.2); ALKALINE PHOSPHATASE 71 U/L (46-116); ALT/SGPT 67 U/L (7.0-40); AST/SGOT 31 U/L (<34); BILIRUBIN,TOTAL 0.8 MG/DL (0.3-1.2); BLOOD UREA NITROGEN 18 MG/DL (9-23); CARBON DIOXIDE LEVEL 30 MMOL/L (20-31); CHLORIDE LEVEL 107 MMOL/L (98-107); CREATININE FOR GFR 0.66 MG/DL (0.55-1.30); GLOMERULAR FILTRATION RATE > 60.0 (>51); GLUCOSE, FASTING 73 MG/DL (60-100); POTASSIUM SERUM 4.2 MMOL/L (3.5-5.1); SODIUM LEVEL 143 MMOL/L (136-145); THYROID STIMULATING HORMONE 1.741 uIU/ML (0.55-4.78); TOTAL PROTEIN 6.7 G/DL (5.7-8.2)
== END ==
LOC: M LAB 07:51
PROVIDERS: ATTEND Family Medicine
DX: M32.9 Systemic lupus erythematosus, unspecified (principal)

== ENCOUNTER → 2023-05-21 | Outpatient (REF) | payer OTHER ==
[2023-05-21 19:42] LABS: ALBUMIN 4.1 G/DL (3.2-5.2); ALKALINE PHOSPHATASE 67 U/L (46-116); ALT/SGPT 54 U/L (7.0-40); AST/SGOT 27 U/L (<34); BILIRUBIN,DIRECT 0.2 MG/DL (<0.4); BILIRUBIN,TOTAL 0.6 MG/DL (0.3-1.2); TOTAL PROTEIN 7.1 G/DL (5.7-8.2)
[2023-05-21 20:15] LABS: C REACTIVE PROTEIN QUANTITATIV < 0.40 MG/DL (<1.0)
== END ==
LOC: M SFHCCLAY 12:50
PROVIDERS: ATTEND Family Medicine
DX: R74.01 Elevation of levels of liver transaminase levels (principal)

== ENCOUNTER → 2024-02-07 | Outpatient (REF) | payer OTHER ==
[2024-02-07 11:40] LABS: BASO % 0.8 % (0.0-1.0); C REACTIVE PROTEIN QUANTITATIV < 0.40 MG/DL (<1.0); EOS # 0.1 10^3/uL (0.0-0.5); EOS % 1.1 % (0.0-3.0); HEMATOCRIT 45.4 % (36.0-47.0); HEMOGLOBIN 15.5 g/dl (12.0-15.5); LYMPH # 1.6 10^3/uL (1.5-5.0); LYMPH % 29.9 % (24.0-44.0); MEAN CORPUSCULAR HEMOGLOBIN 29.7 pg (27.0-33.0); MEAN CORPUSCULAR HGB CONC 34.1 g/dl (32.0-36.5); MONO # 0.4 10^3/uL (0.0-0.8); MONO % 6.7 % (2.0-8.0); NEUTROPHILS # 3.2 10^3/uL (1.5-8.5); NEUTROPHILS % 61.3 % (36.0-66.0); PLATELET COUNT, AUTOMATED 237 10^3/uL (150-450); RED BLOOD COUNT 5.22 10^6/uL (4.00-5.40); WHITE BLOOD COUNT 5.3 10^3/uL (4.0-10.0)
[2024-02-07 11:42] LABS: ALBUMIN 4.2 G/DL (3.2-5.2); ALKALINE PHOSPHATASE 69 U/L (46-116); ALT/SGPT 42 U/L (7.0-40); AST/SGOT 23 U/L (<34); BILIRUBIN,TOTAL 1.1 MG/DL (0.3-1.2); BLOOD UREA NITROGEN 15 MG/DL (9-23); CALCIUM LEVEL 9.6 MG/DL (8.5-10.1); CARBON DIOXIDE LEVEL 29 MMOL/L (20-31); CHLORIDE LEVEL 108 MMOL/L (98-107); CHOLESTEROL LEVEL 184 MG/DL (<200); CHOLESTEROL RISK RATIO 3.11 (<5); CREATININE FOR GFR 0.65 MG/DL (0.55-1.30); GLOMERULAR FILTRATION RATE > 60.0 (>51); GLUCOSE, FASTING 81 MG/DL (60-100); HDL CHOLESTEROL 59.1 MG/DL (>40); LDL CHOLESTEROL 115.1 MG/DL (<100); NON-HDL-C 124.9 MG/DL; POTASSIUM SERUM 4.4 MMOL/L (3.5-5.1); SODIUM LEVEL 141 MMOL/L (136-145); TOTAL PROTEIN 6.9 G/DL (5.7-8.2); TRIGLYCERIDES LEVEL 49 MG/DL (<150)
[2024-02-07 11:44] LABS: FREE T4 1.28 NG/DL (0.89-1.76)
[2024-02-07 11:45] LABS: THYROID STIMULATING HORMONE 1.314 uIU/ML (0.55-4.78)
[2024-02-07 11:48] LABS: HEPATITIS B SURFACE ANTIBODY NEGATIVE (POSITIVE)
[2024-02-07 12:00] LABS: HEPATITIS B SURFACE ANTIGEN NEGATIVE (NEGATIVE)
[2024-02-07 12:03] LABS: ERYTHROCYTE SEDIMENTATION RATE 5 mm/hr (0-30)
[2024-02-07 12:22] LABS: HEPATITIS C VIRUS ABY INDEX 0.02 INDEX (<0.8)
== END ==
LOC: M SFHCCLAY 08:25
PROVIDERS: ATTEND Family Medicine
DX: M32.9 Systemic lupus erythematosus, unspecified (principal); E78.00 Pure hypercholesterolemia, unspecified; R53.83 Other fatigue; R74.01 Elevation of levels of liver transaminase levels